=== PATIENT | female | born 1950 | race Hispanic/Latino ===

== ENCOUNTER 2019-06-13 13:44 | Observation (INO) | payer OTHER, MEDICARE ==
[~2019-06-13] VITALS: Ht 149.9 cm; Wt 55.4 kg
--- NOTE | 2019-06-13 | NUR ---
pt arrived to unit via stretcher, resp even and unlabored a this timer, no distress noted at this time, pt has no complaint of pain when asked, bed in lowest position, bed rails up x2, pt oriented to room and call light, and was instructed to call, to ambulate, call light in reach.
[2019-06-13] MEDS ORDERED: SODIUM CHLORIDE 0.9% 1000ML 1,000 ML IV STA (13:49)
[2019-06-13] MEDS ORDERED: MECLIZINE HCL 12.5 MG TAB PO ONE (14:00)
[2019-06-13] MEDS ORDERED: DIAZEPAM 5 MG TAB PO ONE (14:00)
--- NOTE | 2019-06-13 14:10 | Diagnostic Imaging Report ---
History:Dizziness and weakness Comparison studies:None Technique: Axial images were obtained from the skull base to the vertex. Coronal and sagittal images reconstructed from the axial data. Intravenous contrast: None Dose modulation, iterative reconstruction, and/or weight based adjustment of the mA/kV was utilized to reduce the radiation dose to as low as reasonably achievable. Findings: Scalp/skull: No abnormalities. Extra-axial spaces: No masses. No fluid collections. Brain sulci: Age-appropriate. Ventricles: Age-appropriate. No hydrocephalus. Parenchyma: Subtle hypodensities in the supratentorial white matter are small vessel ischemic changes. No masses, hemorrhage, acute or chronic cortical vascular insults. Sellar/suprasellar region: No abnormalities. Craniocervical junction: Patent foramen magnum. No Chiari one malformation. Incidental findings: Atherosclerotic calcifications in the carotid siphons . Impression: No acute abnormalities. Mild supratentorial white matter small vessel ischemic changes. Signed by: DR Mannie Way M.D. on 06/13/2019 2:08 PM
[2019-06-13 14:43] LABS: BASOPHILS # (AUTO) 0.1 (0.0-0.1); BASOPHILS % 0.7 % (0.0-1.0); EOSINOPHILS # (AUTO) 0.3 (0.0-0.4); EOSINOPHILS % 2.9 % (0.0-6.0); HEMATOCRIT 46.7 % (34.2-44.1); HEMOGLOBIN 14.7 g/dL (12.0-16.0); LYMPHOCYTES # (AUTO) 2.5 (1.0-3.2); LYMPHOCYTES % 29.8 % (18.0-39.1); MEAN CORPUSCULAR HGB CONC 31.5 g/dL (31-35); MONOCYTES # (AUTO) 0.5 (0.2-0.8); MONOCYTES % 5.9 % (4.4-11.3); NEUTROPHILS # (AUTO) 5.1 (2.1-6.9); NEUTROPHILS % 60.5 % (38.7-80.0); PLATELET COUNT 185 x10e3/uL (140-360); RED BLOOD COUNT 5.25 x10e6/uL (3.6-5.1); RED CELL DISTRIBUTION WIDTH 13.3 % (11.7-14.4)
[2019-06-13 15:15] LABS: ALANINE AMINOTRANSFERASE 19 IU/L (0-55); ALBUMIN 4.3 g/dL (3.5-5.0); ALBUMIN/GLOBULIN RATIO 1.1 (0.8-2.0); ALKALINE PHOSPHATASE 96 IU/L (40-150); ANION GAP 11.7 mmol/L (8-16); BLOOD UREA NITROGEN 21 mg/dL (7-26); BUN/CREATININE RATIO 25 (6-25); CALCIUM 10.1 mg/dL (8.4-10.2); CARBON DIOXIDE 29 mmol/L (22-29); CHLORIDE 103 mmol/L (98-107); CREATINE KINASE 66 IU/L (29-168); CREATININE, SERUM 0.84 mg/dL (0.57-1.11); EST GLOMERULAR FILTRATION RATE > 60 ML/MIN (60-); GLUCOSE 127 mg/dL (74-118); POTASSIUM 3.7 mmol/L (3.5-5.1); SODIUM 140 mmol/L (136-145)
--- NOTE | 2019-06-13 16:09 | NUR ---
ambulated from the restroom down the piper and back to room ; gait was slow, but still unsure of her stance. a bit of a "wobble". according to the family, this was unusual for her. does not use walker
[2019-06-13] MEDS ORDERED: SODIUM CHLORIDE 0.9% 100 ML ONE (16:36)
[2019-06-13] MEDS ORDERED: IOPAMIDOL 370 MG/ML 200 ML INFUS..BTL INJ ONE (16:37)
--- NOTE | 2019-06-13 17:13 | Diagnostic Imaging Report ---
History:Dizziness, Comparison studies:None Technique: Axial images were obtained from the thoracic inlet. 3-D reconstructions and maximum intensity projection reformats were performed. Coronal and sagittal images reconstructed from the axial data. Intravenous contrast: 100 cc of Omnipaque 300. Dose modulation, iterative reconstruction, and/or weight based adjustment of the mA/kV was utilized to reduce the radiation dose to as low as reasonably achievable. Findings: Percentage of stenosis will be based on the NASCET criteria Aortic arch and major vessels: Patent. No abnormalities. Common carotid arteries: Patent. No abnormalities. Right internal carotid artery: Patent. Nonstenotic atherosclerotic calcifications at the carotid bulb. Left internal carotid artery: Patent. Atherosclerotic calcifications at the carotid bulb with less than 30% stenosis. Right vertebral artery: Patent. No abnormalities. Left vertebral artery: Patent. No abnormalities. Basilar artery: Patent. No abnormalities. Posterior cerebral arteries: Patent. No abnormalities. Anatomical variants: Acom: Patent . Pcoms: Patent. 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 Under pneumatization of the bilateral masseter cells, related to remote inflammatory changes. Grossly patent cervical canal and foramina. IMPRESSION: Cervical CTA: 1. No acute cervical vascular abnormality. No hemodynamically significant stenosis Intracranial CTA: 1. No acute intracranial vascular abnormality or large vessel occlusion Signed by: DR Mannie Way M.D. on 06/13/2019 5:11 PM
--- OUTSIDE RECORDS SUMMARY | 2019-06-13 18:40 | XMS REPORT ---
Author Author [facility] Address Unknown Phone Unavailable Care Team Providers Care Import And Export Clerk Name Role Phone KD BOND Unavailable Unavailable Problems This patient has no known problems. Allergies, Adverse Reactions, Alerts This patient has no known allergies or adverse reactions. Medications This patient has no known medications. Results Test Description Test Time Test Comments Text Results Atomic Results Result Comments CTA BRAIN 2019-06-13 17:02:00 [facility] [address] [place] [address] Patient Name: VICKIE KWAN MR #: [id number] : 1950 Age/Sex: 68/F Req #: [id number] [facility] Physician: Ordered by: KD BOND DO Report #: [id number] Location: ER Room/Bed: Procedure: [id number] CT/CTA BRAIN Exam Date: 06/13/19 Exam Time: 1540 REPORT STATUS: Signed History:Dizziness, Comparison studies:None Technique: Axial images were obtained from the thoracic inlet. 3-D reconstructions and maximum intensity projection reformats were performed. Coronal and sagittal images reconstructed from the axial data. Intravenous contrast: 100 cc of Omnipaque 300. Dose modulation, iterative reconstruction, and/or weight based adjustment of the mA/kV was utilized to reduce the radiation dose to as low as reasonably achievable. Findings: Percentage of stenosis will be based on the NASCET criteria Aortic arch and major vessels: Patent. No abnormalities. Common carotid arteries: Patent. No abnormalities. Right internal carotid artery: Patent. Nonstenotic atherosclerotic calcifications at the carotid bulb. Left internal carotid artery: Patent. Atherosclerotic calcifications at the carotid bulb with less than 30% stenosis. Right vertebral artery: Patent. No abnormalities. Left vertebral artery: Patent. No abnormalities. Basilar artery: Patent. No abnormalities. Posterior cerebral arteries: Patent. No abnormalities. Anatomical variants: Acom: Patent . Pcoms: Patent. 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 Under pneumatization of the bilateral masseter cells, related to remote inflammatory changes. Grossly patent cervical canal and foramina. IMPRESSION: Cervical CTA: 1. No acute cervical vascular abnormality. No hemodynamically significant stenosis Intracranial CTA: 1. No acute intracranial vascular abnormality or large vessel occlusion Signed by: DR Mannie Way M.D. on 06/13/2019 5:11 PM Dictated By: MANNIE VARMA MD 10 Transcribed By: TAMAR on 06/13/191710 COPY TO: KD BOND DO CTA NECK 2019-06-13 17:02:00 [place] [address] Patient Name: VICKIE KWAN MR #: [id number] : 1950 Age/Sex: 68/F Req #: [id number] Adm Physician: Ordered by: KD BOND DO Report #: [id number] Location: ER Room/Bed: Procedure: [id number] CT/CTA NECK Exam Date: 06/13/19 Exam Time: 1540 REPORT STATUS: Signed History:Dizziness, Comparison studies:None Technique: Axial images were obtained from the thoracic inlet. 3-D reconstructions and maximum intensity projection reformats were performed. Coronal and sagittal images reconstructed from the axial data. Intravenous contrast: 100 cc of Omnipaque 300. Dose modulation, iterative reconstruction, and/or weight based adjustment of the mA/kV was utilized to reduce the radiation dose to as low as reasonably achievable. Findings: Percentage of stenosis will be based on the NASCET criteria Aortic arch and major vessels: Patent. No abnormalities. Common carotid arteries: Patent. No abnormalities. Right internal carotid artery: Patent. Nonstenotic atherosclerotic calcifications at the carotid bulb. Left internal carotid artery: Patent. Atherosclerotic calcifications at the carotid bulb with less than 30% stenosis. Right vertebral artery: Patent. No abnormalities. Left vertebral artery: Patent. No abnormalities. Basilar artery: Patent. No abnormalities. Posterior cerebral arteries: Patent. No abnormalities. Anatomical variants: Acom: Patent . Pcoms: Patent. 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 Under pneumatization of the bilateral masseter cells, related to remote inflammatory changes. Grossly patent cervical canal and foramina. IMPRESSION: Cervical CTA: 1. No acute cervical vascular abnormality. No hemodynamically significant stenosis Intracranial CTA: 1. No acute intracranial vascular abnormality or large vessel occlusion Signed by: DR Mannie Way M.D. on 06/13/2019 5:11 PM Dictated By: MANNIE VARMA MD 171 Transcribed By: TAMAR on 06/13/19 1711 COPY TO: KD BOND DO CT BRAIN WO 2019-06-13 14:06:00 [place] [address] Patient Name: VICKIE KWAN MR #: [id number] : 1950 Age/Sex: 68/F Req #: [id number] Adm Physician: Ordered by: KD BOND DO Report #: [id number] Location: ER Room/Bed: Procedure: [id number] CT/CT BRAIN WO Exam Date: 06/13/19 Exam Time: 1345 REPORT STATUS: Signed History:Dizziness and weakness Comparison studies:None Technique: Axial images were obtained from the skull base to the vertex. Coronal and sagittal images reconstructed from the axial data. Intravenous contrast: None Dose modulation, iterative reconstruction, and/or weight based adjustment of the mA/kV was utilized to reduce the radiation dose to as low as reasonably achievable. Findings: Scalp/skull: No abnormalities. Extra-axial spaces: No masses. No fluid collections. Brain sulci: Age-appropriate. Ventricles: Age-appropriate. No hydrocephalus. Parenchyma: Subtle hypodensities in the supratentorial white matter are small vessel ischemic changes. No masses, hemorrhage, acute or chronic cortical vascular insults. Sellar/suprasellar region: No abnormalities. Craniocervical junction: Patent foramen magnum. No Chiari one malformation. Incidental findings: Atherosclerotic calcifications in the carotid siphons . Impression: No acute abnormalities. Mild supratentorial white matter small vessel ischemic changes. Signed by: DR Mannie Way M.D. on 06/13/2019 2:08 PM Dictated By: MANNIE VARMA MD 1408 Transcribed By: TAMAR on 06/13/19 1408 COPY TO: KD BOND DO SCR MAMM BILATERAL REILLY CAD DIGITAL 2019-05-25 14:54:01 - SCR MAMM BILATERAL REILLY CAD DIGITALBILATERAL DIGITAL SCREENING MAMMOGRAM 3D/2D WITH CAD: 05/25/2019CLINICAL: Asymptomatic. Digital breast tomosynthesis was performed in addition to routine CC and MLO views. Current mammographic images were evaluated by either a [employer] M-Vu or a [employer] Image[employer]er CAD (computer aided detection system). Comparison is made to exams dated 04/02/2018 mammogram, 09/05 mammogram, and [facility] The tissue of both breasts is scattered fibroglandular. A shunt has a biopsy marker clip from previous needle biopsy in the left breast, benign. No suspicious mass, architectural distortion, malignant type calcification, or lymph node abnormality detected. IMPRESSION: BENIGNThere is no mammographic evidence of malignancy. Bilateral survey ultrasound to follow.Juan Jose Montoya M.D. ss/:05/25/2019 14:54:01 Entry: [facility] 05/26/2019 14:54:06Imaging Technologist: Graciela MACHADO, [facility]- RADS: 2 Benign BREAST ULTRASOUND BILATERAL 2019-05-25 14:54:00 - BREAST ULTRASOUND BILATERALULTRASOUND OF BOTH BREASTS: 05/25/2019Comparison is made to exams dated 04/02/2018 mammogram, 2017 mammogram, and 03/12/2017 [facility]. Color flow and real-time ultrasound of both breasts were performed. Soria scale images of the real-time examination were reviewed. The breast tissue has scattered fibroglandular background echotexture. Bilateral survey ultrasound demonstrates no suspicious sonographic abnormality. No axillary lymphadenopathy was seen.IMPRESSION: BENIGN There is no sonographic evidence of malignancy. Resume annual screening mammography in one year. Juan Jose Montoya M.D. ss/:05/25/2019 14:54:00 Entry: [facility] 05/26/2019 14:55:30Imaging Technologist: Graciela MACHADO, [facility] BIRADS 1-2 Combo FU Letter Ultrasound BI-RADS: 2 Benign DIAG MAMM BILATERAL CAD DIGITAL 2018-04-02 15:29:27 - DIAG MAMM BILATERAL CAD DIGITALBILATERAL DIGITAL DIAGNOSTIC MAMMOGRAM WITH CAD: 04/02/2018CLINICAL: 6 Month follow-up. Current mammographic images were evaluated by either a [employer] M-Vu or a [employer] Image[employer]er CAD (computer aided detection system). Comparison is made to exams dated 2017 mammogram, 03/12/2017 mammogram, 02/21/2017 mammogram, and 02/23/2016 [facility]. The tissue of both breasts is heterogeneously dense. This may lower the sensitivity of mammography. There is a biopsy clip in the left breast. No suspicious mass, architectural distortion, malignant type calcification, or lymph node abnormality detected. INCOMPLETE ASSESSMENT: ADDITIONAL IMAGING EVALUATION RECOMMENDEDUltrasound pending for additional evaluation. Resume annual screening mammography in one year. - BREAST ULTRASOUND BILATERALULTRASOUND OF BOTH BREASTS AND BOTH AXILLA: 04/02/2018Comparison is made to exams dated 2017 mammogram, 03/12/2017 mammogram, 02/21/2017 mammogram, and [facility]/23/[facility]. Real-time ultrasound of both breasts and both axilla was performed. No abnormalities were seen sonographically in either breast or either axilla. Clinical breast exam was unremarkable.IMPRESSION: NEGATIVE There is no sonographic evidence of malignancy. Patient has been informed that she has areas of dense breast tissue that could make it difficult to find a small cancer. A screening mammogram and supplemental ultrasound for dense breast tissue is recommended in 1 year.Ashley Woo M.D. dm/:04/02/2018 15:29:27 Business Mgr: Maritza MACHADO, [facility] sent: BIRADS 1-2 Combo FU Letter Mammogram BI-RADS: 0 Indeterminate Ultrasound BI-RADS: 1 Negative BREAST ULTRASOUND BILATERAL 2018-04-02 15:29:27 - DIAG MAMM BILATERAL CAD DIGITALBILATERAL DIGITAL DIAGNOSTIC MAMMOGRAM WITH CAD: 04/02/2018CLINICAL: 6 Month follow-up. Current mammographic images were evaluated by either a [employer] M-Vu or a [employer] ImageChecker CAD (computer aided detection system). Comparison is made to exams dated 2017 mammogram, 03/12/2017 mammogram, 02/21/2017 mammogram, and 02/23/2016 [facility]. The tissue of both breasts is heterogeneously dense. This may lower the sensitivity of mammography. There is a biopsy clip in the left breast. No suspicious mass, architectural distortion, malignant type calcification, or lymph node abnormality detected. INCOMPLETE ASSESSMENT: ADDITIONAL IMAGING EVALUATION RECOMMENDEDUltrasound pending for additional evaluation. Resume annual screening mammography in one year. - BREAST ULTRASOUND BILATERALULTRASOUND OF BOTH BREASTS AND BOTH AXILLA: 04/02/2018Comparison is made to exams dated 2017 mammogram, 03/12/2017 mammogram, 02/21/2017 mammogram, and 02/23/2016 [facility] Real-time ultrasound of both breasts and both axilla was performed. No abnormalities were seen sonographically in either breast or either axilla. Clinical breast exam was unremarkable.IMPRESSION: NEGATIVE There is no sonographic evidence of malignancy. Patient has been informed that she has areas of dense breast tissue that could make it difficult to find a small cancer. A screening mammogram and supplemental ultrasound for dense breast tissue is recommended in 1 year.Ashley Woo M.D. dm/:04/02/2018 15:29:27 Business Mgr: Maritza MACHADO, [facility] sent: BIRADS 1-2 Combo FU Letter Mammogram BI-RADS: 0 Indeterminate Ultrasound BI-RADS: 1 Negative
[2019-06-13 22:48] VITALS: BP 181/77
[2019-06-14] VITALS (9 sets, daily range): BP systolic 120–181; BP diastolic 56–78
[2019-06-14] MEDS ORDERED: DOCUSATE SODIUM 100 MG CAP PO PRN (05:45)
[2019-06-14] MEDS ORDERED: ACETAMINOPHEN 325 MG TAB PO PRN (05:45)
--- NOTE | 2019-06-14 05:45 | NUR ---
H&P cc: dizziness HPI: 68yoF, PCP , developed sensation of dizziness and room spinning. Has been ongoing for some time. No cp/sob PMH: DM2, cleft palate s/p sx PSHx: cleft palate related x10, Csection, cholecystectomy Allergies; see emr FH/SH; ; no cigs meds; see MAR ROS: no f/c/s/SAINI/cp/vision changes/skin rash/focal limb weakness v/s; revd PE tired appearing anicteric ns1s2 mod bs soft nt nd no e/t skin dry flat affect labs/meds revd A/P: 68yoF BPPV- meclizine Intractable Nausea- meclizine DM2- hab1c/lipids Prop: lovenox; pepcid dispo; PT; start meclizine Chris De La Cruz MD, PhD.
--- NOTE | 2019-06-14 07:00 | NUR ---
patient received from evening RN. patient doing well, no complaints at this time. Bed alarm in place and patient aware to call for assistance before ambulating. SANDRA.
[2019-06-14 07:28] LABS: CHOL/HDL RATIO 4.9 (3.0-3.6)
[2019-06-14] MEDS: FAMOTIDINE 20 MG TAB PO SCH ×3 (07:30→17:35)
--- NOTE | 2019-06-14 07:33 | NUR ---
Walking rounds complete, report given to oncoming nurse.
[2019-06-14] MEDS: MECLIZINE HCL 12.5 MG TAB PO SCH ×2 (14:03→22:00)
--- NOTE | 2019-06-14 15:29 | NUR ---
patient leaving unit to go to MRI.
[2019-06-14] MEDS ORDERED: ENOXAPARIN SOD INJ 40 MG/0.4 ML SYR SC SCH (17:00)
--- NOTE | 2019-06-14 19:09 | Diagnostic Imaging Report ---
History: Dizziness, weakness Comparison studies: CT head and CTA head and neck 06/13/2019 Technique: Sagittal T2; axial DWI, FLAIR, MPGR, T1, Coronal FLAIR. Intravenous contrast: None Findings: Scalp: Normal in signal . No masses . Bone marrow: Normal in signal intensity. Extra-axial: No masses, no fluid collections. Brain sulci: Appropriate for age. Ventricles: Normal in size . No hydrocephalus . Parenchyma: Scattered small T-2/flair of the periventricular and deep white matter No masses, hemorrhage, acute or chronic vascular insults. Suprasellar region: No abnormalities. Craniocervical junction: No abnormalities. Patent foramen magnum. No Chiari one malformation. Vessels: Normal flow-voids in the arteries and sinuses. IMPRESSION: 1. No acute abnormalities. 2. Mild chronic microvascular ischemic changes of the white matter. Signed by: DR Mannie Way M.D. on 06/14/2019 7:06 PM
--- NOTE | 2019-06-14 19:15 | NUR ---
Bedside nursing shift report completed with morning nurse. Pt lying in bed, HOB 45 degrees. Denies pain at this time. Call light within reach. Bed low and locked. Family at bedside. Will continue to monitor.
[2019-06-15 00:35] VITALS: BP 122/72
[2019-06-15 04:22] VITALS: BP 124/59
[2019-06-15] MEDS: MECLIZINE HCL 12.5 MG TAB PO SCH (05:46)
--- NOTE | 2019-06-15 07:11 | NUR ---
BS shift report completed. Pt no acute distress noted.
[2019-06-15 08:00] VITALS: BP 143/68
[2019-06-15 08:11] VITALS: BP 124/59
[2019-06-15] MEDS ORDERED: FAMOTIDINE20 MG PO (09:12)
[2019-06-15] MEDS ORDERED: Meclizine Hcl PO (09:12)
--- NOTE | 2019-06-15 09:15 | NUR ---
D/C summary Principal Dx: BPPV- meclizine Intractable Nausea- meclizine Secondary Dx: DM2- hab1c/lipids Prop: lovenox; pepcid dispo; PT; start meclizine d/c home with meclizine and [place] manoeuver stable d/c>35mins f/u pcp 1 week Chris De La Cruz MD, PhD.
--- NOTE | 2019-06-15 12:22 | NUR ---
patient discharged. telemetry removed. IV removed, bleeding controlled & dressing applied. pharmacist spoke with Dr. De La Cruz and cancelled prescription for pepcid. patient aware. patient wheeled off unit to daughters personal vehicle with all belongings in stable condition.
== END 2019-06-15 12:09 | disposition home or self-care (01) ==
LOC: ER 13:44 → ERHOLD 16:44 → MED/SURG2 22:48
PROVIDERS: ADMIT Internal Medicine; ATTEND Internal Medicine
DX: H81.10 Benign paroxysmal vertigo, unspecified ear (principal); E11.9 Type 2 diabetes mellitus without complications
CPT/HCPCS: 36415 ×2; 70450; 70496; 70498; 70551; 80053; 80061; 82550; 82553; 83036; 84484; 85025; 93005; 99284; G0378 ×3; J1650; J7030; J7050; J8597 ×3; Q9967